=== PATIENT | male | born 1955 | race Hispanic/Latino ===

== ENCOUNTER → 2018-06-24 | Day surgery (SDC) | payer OTHER ==
[~2018-06-24] MED LIST: EXFORGE HCT 101 EAC1 PO; EXFORGE HCT 101 EAC2 PO; FENTANYL CITRATE/PF 100MCG/2 ML INJ ONE; HYOSCYAMINE SULFATE 0.5 MG/ML INJ ONE; MIDAZOLAM HCL 5MG/ML 2ML VIAL ONE; NEXIUM40 MG PO; PROPOFOL IV EMULSION 10 MG/ML 50 ML VIAL ONE
[2018-06-24 17:40] VITALS: BP 151/87
[2018-06-24 18:07] LABS: INR 0.97; PROTHROMBIN TIME 13.8 seconds (11.9-14.5)
[2018-06-24 18:17] LABS: BILIRUBIN,DIRECT 0.6 mg/dL (0.0-0.5)
--- NOTE | 2018-06-25 01:10 | Operative Report ---
DATE OF PROCEDURE: June 24, 2018 ADDENDUM IMPRESSION 1. Grade 1 esophageal varices. 2. Submucosal mass extending from 29 to 31 cm from the incisors. 3. Rule out Estrada's esophagus. 4. Gastritis biopsied. Biopsies sent to stain for Helicobacter pylori. PLAN: Follow up histology. Initiate Nexium 40 mg 1 p.o. q.a.m. a.c. Check hepatic panel and check PT/INR. Job#: [id number] LPA
--- NOTE | 2018-08-23 11:11 | Operative Report ---
DATE OF PROCEDURE: June 24, 2018 REFERRING PHYSICIAN: Dr. White. INDICATIONS FOR ESOPHAGOGASTRODUODENOSCOPY: Acid reflux, bloating. INDICATIONS FOR COLONOSCOPY: Rectal bleeding, personal history of colon polyps. MEDICATIONS: Patient was done under MAC. Please see anesthesiologist's note. PROCEDURE: With the patient under left lateral decubitus position, a flexible fiberoptic Olympus gastroscope was introduced into the esophagus under direct visualization without any difficulty. Grade 1 esophageal varices were noted. There was no active bleeding. Minute tongue of velvety red mucosa was noted to extend proximally from the GE junction that was brushed. No biopsy to rule out Estrada's. No biopsies were obtained for possible bleeding. The scope was then advanced with ease into the stomach, and mucosa overlying the antrum and the body revealed some diffuse erythema and [id number] edema. Biopsies were obtained and sent to stain for H. pylori. Pylorus appeared to be of normal contour and shape and was intubated with ease and the scope was advanced all the way to the 2nd portion of the duodenum. The scope was then withdrawn slowly. Mucosa overlying the proximal 2nd portion and the duodenal bulb grossly appeared to be within normal limits. The scope was then withdrawn back into the stomach and retroflexed and mucosa overlying the fundus and cardia appeared to be within normal limits. The scope was then straightened out and was subsequently withdrawn. Patient tolerated the procedure well. IMPRESSION 1. Grade 1 esophageal varices. 2. Rule out Estrada's esophagus. 3. Gastritis, biopsied. Biopsies sent to stain for H. pylori. PLAN: Follow up histology. Continue Nexium 40 mg 1 p.o. q. a.m. a.c. Check hepatic panel. Check PT/INR. Patient was then turned around and after adequate lubrication of the anal canal, a flexible fiberoptic Olympus colonoscope was inserted into the rectum with ease and advanced all the way to the cecum. The scope was then withdrawn slowly and mucosa overlying the cecum grossly appeared to be within normal limits. Two polyps were hot biopsied from the ascending colon. The transverse appeared to be within normal limits. Diverticular disease was noted to involve the distal of ascending and the sigmoid colon. The rectum grossly appeared to be within normal limits. The scope was then retroflexed into the distal rectum and moderate-sized internal hemorrhoids were noted; none of which was actively bleeding. The scope was then straightened out and was subsequently withdrawn. Patient tolerated the procedure well. IMPRESSION 1. Ascending colon polyps x2, hot biopsied. 2. Diverticulosis. 3. Internal hemorrhoids; none actively bleeding. PLAN: Follow up histology. Initiate BSL-3 one p.o. q.d. and Anucort suppositories b.i.d. x10 days and then p.r.n. Patient might benefit from a followup colonoscopy in 3 years. Job#: [id number] RTY cc: Kat White MD
== END | disposition home or self-care (01) ==
LOC: OR 13:38
PROVIDERS: ATTEND Internal Medicine Gastroenterology
DX: K62.5 Hemorrhage of anus and rectum (principal); D12.2 Benign neoplasm of ascending colon; K29.70 Gastritis, unspecified, without bleeding; K22.8 Other specified diseases of esophagus; I85.00 Esophageal varices without bleeding; K21.0 Gastro-esophageal reflux disease with esophagitis; K57.30 Diverticulosis of large intestine without perforation or abscess without bleeding; K64.0 First degree hemorrhoids; I10 Essential (primary) hypertension; H35.30 Unspecified macular degeneration; Z01.810 Encounter for preprocedural cardiovascular examination; Z68.30 Body mass index [BMI] 30.0-30.9, adult
CPT/HCPCS: 36415; 43239; 45384; 80076; 85610; 93005; J1980; J2250; 43235; 45378; 45385

== ENCOUNTER → 2018-08-10 | Outpatient (CLI) | payer OTHER ==
[~2018-08-10] MED LIST changes: -FENTANYL CITRATE/PF 100MCG/2 ML INJ ONE; -HYOSCYAMINE SULFATE 0.5 MG/ML INJ ONE; +IOPAMIDOL 370 MG/ML 200 ML INFUS..BTL INJ ONE; -MIDAZOLAM HCL 5MG/ML 2ML VIAL ONE; -PROPOFOL IV EMULSION 10 MG/ML 50 ML VIAL ONE; +SODIUM CHLORIDE 0.9% 50ML 50 ML ONE
[2018-08-10 12:32] LABS: BLOOD UREA NITROGEN 16 mg/dL (7-26); BUN/CREATININE RATIO 19 (6-25); CREATININE, SERUM 0.85 mg/dL (0.72-1.25); EST GLOMERULAR FILTRATION RATE > 60 ML/MIN (60-)
--- NOTE | 2018-08-10 13:18 | Diagnostic Imaging Report ---
EXAM: Liver Ultrasound INDICATION: Cirrhosis of liver. ^CIRRHOSIS OF LIVER COMPARISON: None. TECHNIQUE: Transverse and longitudinal images of the liver were obtained. FINDINGS: Liver: Size: 16.7 cm in the right midclavicular line, prominent in size Appearance: Normal echogenicity, smooth contour Mass: No focal masses Gallbladder: Unremarkable. The gallbladder wall measures 0.2 cm. The sonographic Whitlock sign is negative. The main portal vein is normal in appearance with a diameter of 1.0 cm. 3.9 x 3.7 x 4.7 cm simple appearing right renal cyst The right kidney is otherwise normal in appearance measuring 11.9 cm. The pancreas is not well seen. The abdominal aorta is unremarkable. The inferior vena cava is unremarkable. Bile Ducts: Intrahepatic Ducts: No dilatation Extrahepatic Ducts: The common bile duct measures 0.2 cm Free Fluid: No ascites or pleural effusion IMPRESSION: The liver is prominent in size. No focal liver mass is seen. 4.7 cm simple appearing right renal cyst. Signed by: Dr. Nestor Rios M.D. on 08/10/2018 1:14 PM
--- NOTE | 2018-08-10 13:49 | Diagnostic Imaging Report ---
EXAM: CT Chest WITH contrast 08/10/2018 1322 hours INDICATION: Cirrhosis. Reflux. Hypertension. Prior appendectomy. COMPARISON: None TECHNIQUE: Chest was scanned utilizing a multidetector helical scanner from the lung apex through the level of the adrenal glands without administration of IV contrast. Coronal and sagittal reformations were obtained. Routine protocol was performed. IV CONTRAST: 100 mL of Isovue-370 RADIATION DOSE: Total DLP: 637.86 mGy*cm Estimated effective dose: (DLP x 0.014 x size factor) mSv COMPLICATIONS: None All CT scans are performed using radiation dose reduction techniques. Technical factors are evaluated and adjusted to ensure appropriate moderation of exposure. Automated dose management technology is applied to adjust the radiation dose to minimize exposure while achieving a diagnostic-quality image. FINDINGS: LINES/ TUBES: None. LUNGS AND AIRWAYS: Mild nonspecific groundglass density in the left lower and upper lobes best seen on series 3 image 60. 0.4 cm pleural-based nodule in the posterior lateral left lower lobe best seen on series 3 image 97. Several subcentimeter cysts in the posterior right lower lobe best seen on series 3 image 85 and 78. . Airways are normal. PLEURA: The pleural spaces are clear. HEART AND MEDIASTINUM: The thyroid gland is normal. No mediastinal, hilar or axillary lymphadenopathy. The heart is normal in size. There is no pericardial effusion. UPPER ABDOMEN: Simple appearing left renal cyst. There is a too small to characterize hypodensity in the medial right hepatic lobe best seen on series 2 image 124. BONES: Scattered degenerative change. SOFT TISSUES: Unremarkable. IMPRESSION: Mild nonspecific groundglass density in the left lower and upper lobes. This could be due to a resolving inflammatory process. 0.4 cm pleural-based nodule in the posterior lateral left lower lobe. A follow-up CT scan in one year is recommended Signed by: Dr. Nestor Rios M.D. on 08/10/2018 1:46 PM
== END ==
LOC: US 11:36
PROVIDERS: ATTEND Internal Medicine Gastroenterology
DX: K74.60 Unspecified cirrhosis of liver (principal); K22.8 Other specified diseases of esophagus
CPT/HCPCS: 36415; 71260; 76705; 82565; 84520; Q9967

== ENCOUNTER → 2020-10-23 | Day surgery (SDC) | payer OTHER ==
[~2020-10-23] MED LIST changes: +AMLOD-VALSA-HC1 EAC2 PO; +DIOVAN80 MG PO; +FENTANYL CITRATE/PF 100MCG/2 ML INJ ONE; -IOPAMIDOL 370 MG/ML 200 ML INFUS..BTL INJ ONE; +MIDAZOLAM HCL 5 MG/ML VIAL ONE; +OMEPRAZOLE40 MG PO; +PROPOFOL IV EMULSION 10 MG/ML 20 ML VIAL ONE; -SODIUM CHLORIDE 0.9% 50ML 50 ML ONE; +VIT D PO
[2020-10-23 16:20] VITALS: BP 116/68
== END | disposition home or self-care (01) ==
LOC: OR 14:11
PROVIDERS: ATTEND Internal Medicine Gastroenterology
DX: K59.09 Other constipation (principal); D12.5 Benign neoplasm of sigmoid colon; K57.30 Diverticulosis of large intestine without perforation or abscess without bleeding; K64.8 Other hemorrhoids; I85.00 Esophageal varices without bleeding; K29.70 Gastritis, unspecified, without bleeding; I10 Essential (primary) hypertension; Z01.812 Encounter for preprocedural laboratory examination; Z20.822 Contact with and (suspected) exposure to COVID-19; Z68.31 Body mass index [BMI] 31.0-31.9, adult
CPT/HCPCS: 45384; J2250; J2704; J3010; U0002; 45380

== ENCOUNTER → 2022-01-07 | Outpatient (CLI) | payer OTHER ==
[~2022-01-07] MED LIST changes: -FENTANYL CITRATE/PF 100MCG/2 ML INJ ONE; +GADOBENATE DIMEGLUMINE 1 ML IV ONE; -MIDAZOLAM HCL 5 MG/ML VIAL ONE; -PROPOFOL IV EMULSION 10 MG/ML 20 ML VIAL ONE
[2022-01-07 11:13] LABS: CREATININE, SERUM 0.79 mg/dL (0.72-1.25)
== END ==
LOC: MRI 10:15
PROVIDERS: ATTEND Internal Medicine Gastroenterology
DX: R93.2 Abnormal findings on diagnostic imaging of liver and biliary tract (principal)
CPT/HCPCS: 36415; 74183; 82565; 84520; A9577

== ENCOUNTER → 2024-05-19 | Outpatient (REF) | payer MEDICARE ==
[~2024-05-19] MED LIST changes: -GADOBENATE DIMEGLUMINE 1 ML IV ONE
== END ==
LOC: US 14:38
PROVIDERS: ATTEND Nurse Practitioner
DX: K70.30 Alcoholic cirrhosis of liver without ascites (principal); K29.70 Gastritis, unspecified, without bleeding; Z86.0100 Personal history of colon polyps, unspecified
CPT/HCPCS: 76700